=== PATIENT | male | born 1970 | race Caucasian/White ===

== ENCOUNTER 2023-03-07 09:51 | Emergency (ER) | payer BC ==
[~2023-03-07] VITALS: Ht 177.8 cm; Wt 111.1 kg
[2023-03-07] MEDS ORDERED: LABETALOL HCL 5 MG/ML 20ML VIAL IV STA (10:06)
[2023-03-07] MEDS ORDERED: PROMETHAZINE HCL (IM) 25 MG/ML VIAL IM ONE (10:15)
[2023-03-07] MEDS ORDERED: LABETALOL HCL 20 ML ONE (10:15)
[2023-03-07] MEDS ORDERED: PROMETHAZINE 12.5MG/ NACL 0.9% 12.5 MG/50 ML BAG IV ONE (10:15)
[2023-03-07] MEDS ORDERED: MECLIZINE HCL 12.5 MG TAB ONE (10:33)
[2023-03-07] MEDS ORDERED: MECLIZINE HCL 12.5 MG TAB PO ONE (10:45)
[2023-03-07 11:48] VITALS: BP 143/94
[2023-03-07] MEDS ORDERED: MECLIZINE HCL12.5 MG PO (11:53)
== END 2023-03-07 11:57 | disposition home or self-care (01) ==
LOC: FSED 09:59
DX: R42 Dizziness and giddiness (principal); I10 Essential (primary) hypertension; R11.0 Nausea; R94.31 Abnormal electrocardiogram [ECG] [EKG]
CPT/HCPCS: 70450; 71046; 80053; 82553; 84484; 85025; 93005; 99284; J2550; J3490; J8597